=== PATIENT | male | born 1965 | race Caucasian/White ===

== ENCOUNTER 2016-12-04 17:48 | Emergency (ER) | payer MEDICAID ==
[~2016-12-04] VITALS: Ht 170.2 cm; Wt 79.0 kg
[2016-12-04] MEDS ORDERED: MAALOX/HYOSCYAMINE/LIDOCAINE 45 ML BTL PO ONE (18:30)
[2016-12-04] MEDS ORDERED: ASPIRIN 81 MG TABLET CHEW PO ONE (18:30)
[2016-12-04] MEDS ORDERED: ONDANSETRON ODT 4 MG PO ONE (18:30)
[2016-12-04 18:34] LABS: HEMATOCRIT 47.9 % (39.2-51.8); HEMOGLOBIN 16.1 g/dL (13.7-18.0); WHITE BLOOD COUNT 17.1 x10^3/uL (3.4-10)
[2016-12-04 18:45] LABS: ASPARTATE AMINO TRANSFERASE 20 U/L (15-37); BLOOD UREA NITROGEN 12 mg/dL (7-18)
[2016-12-04 18:57] LABS: IS PT STATUS REG ER OR PRE ER? YES
[2016-12-04] MEDS ORDERED: FLUO60TA PO (19:03)
[2016-12-04] MEDS ORDERED: PRAV20TA2 PO (19:04)
[2016-12-04] MEDS ORDERED: TRAZ300T2 PO (19:04)
[2016-12-04] MEDS ORDERED: ALBU18HF INH (19:06)
[2016-12-04] MEDS ORDERED: FLUTICA (19:07)
[2016-12-04] MEDS ORDERED: FLUTICASONE (19:08)
[2016-12-04] MEDS ORDERED: NAPR500T3 PO (19:09)
[2016-12-04] MEDS ORDERED: HYDR-883 PO (19:10)
[2016-12-04] MEDS ORDERED: BUDE10.2 INH (19:11)
[2016-12-04] MEDS ORDERED: ONDANSETRON ODT 4 MG ONE (19:58)
[2016-12-04] MEDS ORDERED: ASPIRIN 81 MG TABLET CHEW ONE (19:59)
[2016-12-04] MEDS ORDERED: MAALOX/HYOSCYAMINE/LIDOCAINE 45 ML BTL ONE (19:59)
[2016-12-04] MEDS ORDERED: OXYcodone/APAP 10/325MG TABLET PO ONE (20:00)
[2016-12-04] MEDS ORDERED: KETOROLAC 30 MG/1 ML IM ONE (20:00)
[2016-12-04] MEDS ORDERED: KETOROLAC 30 MG/1 ML ONE (20:10)
[2016-12-04] MEDS ORDERED: OXYcodone/APAP 10/325MG TABLET ONE (20:10)
[2016-12-04 21:07] VITALS: BP 115/77
== END 2016-12-04 21:36 | disposition home or self-care (01) ==
LOC: ED 21:00
DX: R07.89 Other chest pain (principal); R10.11 Right upper quadrant pain; D72.829 Elevated white blood cell count, unspecified; F17.200 Nicotine dependence, unspecified, uncomplicated; I10 Essential (primary) hypertension
CPT/HCPCS: 36415; 71010; 74000; 76700; 80053; 83690; 84484; 85025; 85379; 93005; 96372; 99285; J1885; Q0162

== ENCOUNTER → 2017-01-09 | Outpatient (CLI) | payer MEDICAID ==
[~2017-01-09] MED LIST: ALBU18HF INH; BUDE10.2 INH; FLUO60TA PO; FLUTICA; FLUTICASONE; HYDR-883 PO; NAPR500T3 PO; PRAV20TA2 PO; TRAZ300T2 PO
== END | disposition home or self-care (01) ==
LOC: CFH 11:10
PROVIDERS: ATTEND Internal Medicine
DX: M41.85 Other forms of scoliosis, thoracolumbar region (principal); D72.829 Elevated white blood cell count, unspecified
CPT/HCPCS: 71020

== ENCOUNTER → 2017-09-05 | Outpatient (CLI) | payer MEDICAID ==
[~2017-09-05] MED LIST changes: +NAPR-685 PO; -NAPR500T3 PO
== END | disposition home or self-care (01) ==
LOC: CFH 07:17
PROVIDERS: ATTEND Nurse Practitioner
DX: M41.86 Other forms of scoliosis, lumbar region (principal); M51.36 Other intervertebral disc degeneration, lumbar region
CPT/HCPCS: 72110; 72148

== ENCOUNTER 2017-09-28 12:27 | Emergency (ER) | payer MEDICAID ==
[~2017-09-28] VITALS: Ht 170.2 cm; Wt 68.5 kg
[2017-09-28] MEDS ORDERED: ATOR-2 PO (13:31)
[2017-09-28] MEDS ORDERED: HYDR-3240 PO (13:32)
[2017-09-28] MEDS ORDERED: CETI-237 PO (13:33)
[2017-09-28 13:45] LABS: BASOPHILS # (AUTO) 0.12 x10^3/uL (0-0.1); BASOPHILS % (AUTO) 1 % (0-1); EOSINOPHILS # (AUTO) 0.16 x10^3/uL (0-0.4); EOSINOPHILS % (AUTO) 2 % (1-7); LYMPHOCYTES # (AUTO) 2.47 x10^3/uL (1-3.4); LYMPHOCYTES % (AUTO) 26 % (22-44); MD NO; MEAN CORPUSCULAR HEMOGLOBIN 30.9 pg (27.5-34.5); MEAN CORPUSCULAR HGB CONC 33.9 g/dL (33.2-36.2); MEAN CORPUSCULAR VOLUME 91.2 fL (81-97); MEAN PLATELET VOLUME 8.9 fL (7.4-10.4); MONOCYTES # (AUTO) 0.66 x10^3/uL (0.2-0.8); MONOCYTES % (AUTO) 7 % (2-9); NEUTROPHILS # (AUTO) 6.02 x10^3/uL (1.8-6.8); NEUTROPHILS % (AUTO) 64 % (42-75); PLATELET COUNT 184 x10^3/uL (130-400); RED BLOOD COUNT 4.97 x10^6/uL (4.38-5.82); RED CELL DISTRIBUTION WIDTH 14.5 % (9.4-14.8)
[2017-09-28 14:01] LABS: ALBUMIN 3.7 g/dL (3.4-5.0); ANION GAP 4 mmol/L (5-15); CALCIUM 9.1 mg/dL (8.5-10.1); CHLORIDE 106 mmol/L (98-107); CREATININE 0.88 mg/dL (0.7-1.3)
[2017-09-28 14:41] VITALS: BP 120/84
== END 2017-09-28 14:45 | disposition home or self-care (01) ==
LOC: ED 13:55
DX: F41.1 Generalized anxiety disorder (principal); R06.4 Hyperventilation; I10 Essential (primary) hypertension; E78.5 Hyperlipidemia, unspecified; M19.90 Unspecified osteoarthritis, unspecified site; F17.200 Nicotine dependence, unspecified, uncomplicated
CPT/HCPCS: 36415; 80048; 82040; 85025; 93005; 99285

== ENCOUNTER 2018-03-22 14:11 | Emergency (ER) | payer MEDICAID ==
[~2018-03-22] VITALS: Ht 170.2 cm; Wt 65.5 kg
[~2018-03-22 14:11] MED LIST changes: +ATOR-2 PO; +CETI-237 PO; +DIME25TA PO; +HYDR-3240 PO; +HYDR-3652 PO; -HYDR-883 PO
[2018-03-22 14:14] VITALS: BP 132/73
== END 2018-03-22 16:28 | disposition home or self-care (01) ==
LOC: ED 16:27
DX: S20.212A Contusion of left front wall of thorax, initial encounter (principal); J45.909 Unspecified asthma, uncomplicated; I10 Essential (primary) hypertension; F41.1 Generalized anxiety disorder; E78.5 Hyperlipidemia, unspecified; F32.9 Major depressive disorder, single episode, unspecified; M19.90 Unspecified osteoarthritis, unspecified site; X58.XXXA Exposure to other specified factors, initial encounter; Y93.89 Activity, other specified; Y92.89 Other specified places as the place of occurrence of the external cause; Y99.8 Other external cause status
CPT/HCPCS: 71046; 99283